=== PATIENT | male | born 1960 | race Caucasian/White ===

== ENCOUNTER 2023-11-01 17:36 | Inpatient (IN) | payer OTHER ==
[2023-11-01 21:14] VITALS: BMI 25.4
[2023-11-01] MEDS ORDERED: guaiFENesin 200 MG/10 ML 10 ML UNIT-DOSE CUPS PO PRN (22:04)
[2023-11-01] MEDS ORDERED: MAG HYDROX/AL HYDROX/SIMETH 30 ML UNIT-DOSE CUP PO PRN (22:24)
[2023-11-01] MEDS ORDERED: LOPERAMIDE HCL 2 MG CAPSULE PO PRN (22:24)
[2023-11-01] MEDS ORDERED: DICYCLOMINE HCL 10 MG CAPSULE PO PRN (22:24)
[2023-11-01] MEDS ORDERED: NICOTINE POLACRILEX 2 MG GUM BUC PRN (22:24)
[2023-11-01] MEDS ORDERED: BENZONATATE 200 MG CAPSULE PO PRN (22:24)
[2023-11-01] MEDS ORDERED: MAGNESIUM HYDROX 2400MG/30ML ORAL SUSPENSION 30 ML CUP PO PRN (22:24)
[2023-11-01] MEDS ORDERED: BISMUTH SUBSALICYLATE 524 MG/30 ML PO PRN (22:24)
[2023-11-01] MEDS ORDERED: POLYETHYLENE GLYCOL (HEALTHYLAX) 3350 17 GM PACKET PO PRN (22:24)
[2023-11-01] MEDS ORDERED: ACETAMINOPHEN 325 MG TABLET (FP) PO PRN (22:24)
[2023-11-01] MEDS ORDERED: IBUPROFEN 400 MG TABLET (FP) PO PRN (22:24)
[2023-11-01] MEDS ORDERED: MELATONIN 5 MG TABLETS PO PRN (22:24)
[2023-11-01] MEDS ORDERED: BENZOCAINE/MENTHOL (CHLORASEPTIC ) LOZENGE MM PRN (22:24)
[2023-11-01] MEDS ORDERED: P-EPHED 60MG/TRIPROLIDI 2.5MG TABLET PO PRN (22:24)
[2023-11-01] MEDS ORDERED: ONDANSETRON *ODT* 4 MG TABLET SL PRN (22:24)
[2023-11-01] MEDS ORDERED: chlordiazePOXIDE HCL 25 MG CAPSULE PO PRN (22:28)
[2023-11-01] MEDS ORDERED: METOPROLOL TARTRATE 25 MG TABLET (FP) PO ONE (23:15)
[2023-11-01] MEDS ORDERED: chlordiazePOXIDE HCL 25 MG CAPSULE ONE (23:29)
[2023-11-01] MEDS ORDERED: METOPROLOL TARTRATE 25 MG TABLET (FP) ONE (23:29)
[2023-11-02] MEDS: OFLOXACIN 0.3% OPHTHALMIC SOLUTION 5 ML BOTTLE OU SCH ×6 (00:52→21:57)
[2023-11-02] MEDS: chlordiazePOXIDE HCL 25 MG CAPSULE PO SCH ×4 (05:24→22:02)
[2023-11-02] MEDS: PRENATAL VITAMINS W/ FOLIC ACID TABLET (FP) PO SCH (10:41)
[2023-11-02 12:36] LABS: HEMATOCRIT 35.3 % (35.4-49); HEMOGLOBIN 11.8 GM/dL (11.7-16.9); MCH 32.4 pg (25.7-33.7); MCHC 33.3 g/dl (32.0-35.9); MEAN CELL VOLUME 97.3 fl (80-96); MEAN PLT VOLUME 10.2 fl (7.5-11.1); PLATELET COUNT 84 10^3/uL (134-434); RBC 3.63 M/mm3 (4.00-5.60); RDW 13.4 % (11.9-15.9)
[2023-11-02 12:47] LABS: CHLORIDE 94 mmol/L (98-107); SODIUM 131 mmol/L (136-145)
[2023-11-02 12:51] LABS: ALBUMIN 2.5 g/dl (3.4-5.0); CO2 27 mmol/L (21-32); GLUCOSE,RANDOM 80 mg/dL (74-106)
[2023-11-02 12:55] LABS: CREATININE 0.7 mg/dL (0.55-1.3); SGOT/AST 98 U/L (15-37); SGPT/ALT 56 U/L (13-61)
[2023-11-02 12:56] LABS: BILIRUBIN,TOTAL 1.7 mg/dL (0.2-1)
[2023-11-02 12:57] LABS: ALK PHOS 96 U/L (45-117)
[2023-11-02 13:20] LABS: ANION GAP 10 mmol/L (4-13); POTASSIUM 2.9 mmol/L (3.5-5.1)
[2023-11-02] MEDS: POTASSIUM CHLORIDE TABS 20 MEQ TABLET.ER (FP) PO SCH ×2 (13:53→21:57)
[2023-11-02] MEDS: THIAMINE HCL 100 MG TABLET (FP) PO SCH ×2 (19:00→21:56)
[2023-11-02] MEDS ORDERED: THIAMINE HCL 100 MG TABLET (FP) PO SCH (22:00)
[2023-11-03] MEDS ORDERED: chlordiazePOXIDE HCL 10 MG CAPSULE PO PRN
[2023-11-03] MEDS: IBUPROFEN 600 MG TABLET (FP) PO PRN (03:39)
[2023-11-03] MEDS: chlordiazePOXIDE HCL 25 MG CAPSULE PO SCH ×4 (05:47→23:17)
[2023-11-03] MEDS: OFLOXACIN 0.3% OPHTHALMIC SOLUTION 5 ML BOTTLE OU SCH ×5 (05:48→22:55)
[2023-11-03] MEDS: THIAMINE HCL 100 MG TABLET (FP) PO SCH ×3 (05:49→22:53)
[2023-11-03] MEDS: POTASSIUM CHLORIDE TABS 20 MEQ TABLET.ER (FP) PO SCH ×2 (10:25→22:53)
[2023-11-03] MEDS: PRENATAL VITAMINS W/ FOLIC ACID TABLET (FP) PO SCH (10:25)
[2023-11-03 11:39] LABS: POTASSIUM 3.3 mmol/L (3.5-5.1)
[2023-11-03 11:41] LABS: MAGNESIUM 1.4 mg/dL (1.8-2.4)
[2023-11-03 11:46] LABS: PHOSPHOROUS 3.9 mg/dL (2.5-4.9)
[2023-11-03] MEDS: LACTULOSE 20 GM/30 ML UDC (FOR ORAL USE ONLY) PO SCH ×3 (13:37→22:54)
[2023-11-04] MEDS: THIAMINE HCL 100 MG TABLET (FP) PO SCH ×3 (05:38→22:18)
[2023-11-04] MEDS: OFLOXACIN 0.3% OPHTHALMIC SOLUTION 5 ML BOTTLE OU SCH ×5 (05:38→22:18)
[2023-11-04] MEDS: chlordiazePOXIDE HCL 10 MG CAPSULE PO SCH ×4 (05:39→22:18)
[2023-11-04] MEDS: PRENATAL VITAMINS W/ FOLIC ACID TABLET (FP) PO SCH (10:36)
[2023-11-04] MEDS: LACTULOSE 20 GM/30 ML UDC (FOR ORAL USE ONLY) PO SCH ×4 (10:36→22:19)
[2023-11-05] MEDS: OFLOXACIN 0.3% OPHTHALMIC SOLUTION 5 ML BOTTLE OU SCH ×5 (05:46→22:40)
[2023-11-05] MEDS: THIAMINE HCL 100 MG TABLET (FP) PO SCH ×3 (05:47→22:39)
[2023-11-05] MEDS: IBUPROFEN 600 MG TABLET (FP) PO PRN (05:47)
[2023-11-05] MEDS: chlordiazePOXIDE HCL 10 MG CAPSULE PO SCH ×2 (05:47→17:43)
[2023-11-05] MEDS: LACTULOSE 20 GM/30 ML UDC (FOR ORAL USE ONLY) PO SCH ×4 (10:30→22:39)
[2023-11-05] MEDS: PRENATAL VITAMINS W/ FOLIC ACID TABLET (FP) PO SCH (10:30)
[2023-11-06] MEDS ORDERED: chlordiazePOXIDE HCL 10 MG CAPSULE PO ONE (05:00)
[2023-11-06] MEDS: THIAMINE HCL 100 MG TABLET (FP) PO SCH ×3 (05:59→22:52)
[2023-11-06] MEDS: OFLOXACIN 0.3% OPHTHALMIC SOLUTION 5 ML BOTTLE OU SCH ×5 (06:00→22:52)
[2023-11-06] MEDS: PRENATAL VITAMINS W/ FOLIC ACID TABLET (FP) PO SCH (09:31)
[2023-11-06] MEDS: LACTULOSE 20 GM/30 ML UDC (FOR ORAL USE ONLY) PO SCH ×4 (09:31→22:52)
[2023-11-06] MEDS: IBUPROFEN 600 MG TABLET (FP) PO PRN (09:37)
[2023-11-06 11:44] LABS: POTASSIUM 3.7 mmol/L (3.5-5.1)
[2023-11-06 11:58] LABS: CALCIUM 7.9 mg/dL (8.5-10.1)
[2023-11-06 11:59] LABS: BLOOD UREA NITROGEN 7.2 mg/dL (7-18)
[2023-11-06 12:02] LABS: CREATININE 0.7 mg/dL (0.55-1.3)
[2023-11-06 21:19] VITALS: BP 143/103; PULSE 97; RESP 20; TEMP 98
== END 2023-11-06 23:59 | disposition short-term general hospital (02) | DRG 775 ==
LOC: YASAS 17:36 → Y3N 23:40
PROVIDERS: ADMIT Allergy & Immunology; ATTEND Surgery
PROC: HZ2ZZZZ Detoxification Services for Substance Abuse Treatment (ICD-10-PCS; principal; 2023-11-01)
DX: F10.230 Alcohol dependence with withdrawal, uncomplicated (principal); F17.210 Nicotine dependence, cigarettes, uncomplicated; D64.9 Anemia, unspecified; E87.6 Hypokalemia; H10.9 Unspecified conjunctivitis; R79.89 Other specified abnormal findings of blood chemistry; R05.8 Other specified cough; R11.10 Vomiting, unspecified; R06.82 Tachypnea, not elsewhere classified; Z59.02 Unsheltered homelessness
CPT/HCPCS: 36415; 71046-TC-FY; 80048; 80053; 80307; 82140; 82962; 83735; 84100; 84132; 85027; 86780; 87635; 93005; 93010

== ENCOUNTER 2023-11-06 22:03 | Inpatient (IN) | payer OTHER ==
[2023-11-07 01:06] LABS: BASO % 0.5 % (0-2.0); EOS % 3.3 % (0-4.5); HEMATOCRIT 41.6 % (35.4-49); LYMPH % 6.9 % (8-40); MCH 33.2 pg (25.7-33.7); MCHC 33.7 g/dl (32.0-35.9); MEAN CELL VOLUME 98.8 fl (80-96); MONO % 17.9 % (3.8-10.2); NEUT % 71.4 % (42.8-82.8); RBC 4.21 M/mm3 (4.00-5.60); RDW 13.3 % (11.9-15.9); WHITE BLOOD COUNT 9.6 K/mm3 (4.0-10.0)
[2023-11-07 01:30] LABS: POTASSIUM 4.1 mmol/L (3.5-5.1)
[2023-11-07 01:34] LABS: CALCIUM 8.7 mg/dL (8.5-10.1)
[2023-11-07 01:35] LABS: ALBUMIN 2.3 g/dl (3.4-5.0); BLOOD UREA NITROGEN 16.9 mg/dL (7-18); MAGNESIUM 1.8 mg/dL (1.8-2.4)
[2023-11-07 01:38] LABS: CREATININE 0.9 mg/dL (0.55-1.3)
[2023-11-07 01:39] LABS: BILIRUBIN,TOTAL 0.6 mg/dL (0.2-1); TOT PROT 6.4 g/dl (6.4-8.2)
[2023-11-07] MEDS ORDERED: PIPERACILLIN/TAZOB 4.5 GM 4.5 GM in DEXTROSE 5%-WATER 100 ML IVPB ONE (02:07)
[2023-11-07] MEDS ORDERED: VANCOMYCIN 1,000 MG in DEXTROSE 5%-WATER - 250 ML IVPB ONE (02:07)
[2023-11-07] MEDS ORDERED: VANCOMYCIN 1 GRAM (PRE-DOCKED) 1,000 MG/250 ML BAG IVPB ONE (02:30)
[2023-11-07] MEDS ORDERED: PIPERACILLIN/TAZOB 4.5 GM 4.5 GM/100 ML BAG IVPB ONE (02:30)
[2023-11-07] MEDS ORDERED: chlordiazePOXIDE HCL 25 MG CAPSULE PO PRN (03:28)
[2023-11-07 05:02] LABS: MEAN PLT VOLUME 9.6 fl (7.5-11.1); PLATELET COUNT 223 10^3/uL (134-434)
[2023-11-07] MEDS ORDERED: chlordiazePOXIDE HCL 10 MG CAPSULE PO PRN (08:13)
[2023-11-07] MEDS ORDERED: AZITHROMYCIN IVPB 500 MG in DEXTROSE 5%-WATER - 250 ML IVPB SCH (10:00)
[2023-11-07] MEDS: ENOXAPARIN NA (PORCINE) 40 MG/0.4 ML DISP.SYRIN SQ SCH (10:28)
[2023-11-07] MEDS: CEFTRIAXONE 1 GM in DEXTROSE 5%-WATER - 50 ML IVPB SCH (10:28)
[2023-11-07] MEDS: LACTULOSE 20 GM/30 ML UDC (FOR ORAL USE ONLY) PO SCH ×4 (10:28→21:59)
[2023-11-07] MEDS ORDERED: THIAMINE HCL 200 MG/2 ML VIAL IVPB ONE (11:51)
[2023-11-07] MEDS: SODIUM CHLORIDE 1,000 ML IV SCH ×2 (12:19→22:45)
[2023-11-07] MEDS: AZITHROMYCIN IVPB 500 MG/250 ML BAG IVPB SCH (12:20)
[2023-11-08] MEDS ORDERED: THIAMINE HCL 100 MG TABLET (FP) PO SCH (10:00)
[2023-11-08] MEDS: LACTULOSE 20 GM/30 ML UDC (FOR ORAL USE ONLY) PO SCH ×4 (10:31→21:38)
[2023-11-08] MEDS: ENOXAPARIN NA (PORCINE) 40 MG/0.4 ML DISP.SYRIN SQ SCH (10:32)
[2023-11-08] MEDS: AZITHROMYCIN IVPB 500 MG/250 ML BAG IVPB SCH (10:32)
[2023-11-08] MEDS: CEFTRIAXONE 1 GM in DEXTROSE 5%-WATER - 50 ML IVPB SCH (10:32)
[2023-11-08] MEDS: FOLIC ACID 1 MG TABLET (FP) PO SCH (10:34)
[2023-11-08 10:36] LABS: HEMATOCRIT 35.3 % (35.4-49); HEMOGLOBIN 11.8 GM/dL (11.7-16.9); MCH 32.7 pg (25.7-33.7); MCHC 33.5 g/dl (32.0-35.9); MEAN CELL VOLUME 97.6 fl (80-96); MEAN PLT VOLUME 8.9 fl (7.5-11.1); PLATELET COUNT 325 10^3/uL (134-434); RBC 3.62 M/mm3 (4.00-5.60); RDW 13.2 % (11.9-15.9); WHITE BLOOD COUNT 6.9 K/mm3 (4.0-10.0)
[2023-11-08] MEDS: SODIUM CHLORIDE 1,000 ML IV SCH (10:53)
[2023-11-08 11:21] LABS: POTASSIUM 4.2 mmol/L (3.5-5.1)
[2023-11-08 11:22] LABS: CALCIUM 8.2 mg/dL (8.5-10.1)
[2023-11-08 11:23] LABS: BLOOD UREA NITROGEN 10.2 mg/dL (7-18)
[2023-11-08 11:26] LABS: CREATININE 0.7 mg/dL (0.55-1.3)
[2023-11-08] MEDS ORDERED: chlordiazePOXIDE HCL 10 MG CAPSULE PO PRN (19:02)
[2023-11-08] MEDS: THIAMINE HCL 200 MG/2 ML VIAL IVPB SCH (21:38)
[2023-11-09] MEDS: THIAMINE HCL 200 MG/2 ML VIAL IVPB SCH ×3 (06:36→21:56)
[2023-11-09] MEDS: FOLIC ACID 1 MG TABLET (FP) PO SCH (09:55)
[2023-11-09] MEDS: ENOXAPARIN NA (PORCINE) 40 MG/0.4 ML DISP.SYRIN SQ SCH (09:55)
[2023-11-09] MEDS: LACTULOSE 20 GM/30 ML UDC (FOR ORAL USE ONLY) PO SCH ×4 (09:55→21:56)
[2023-11-09] MEDS: CEFTRIAXONE 1 GM in DEXTROSE 5%-WATER - 50 ML IVPB SCH (09:55)
[2023-11-09] MEDS: AZITHROMYCIN IVPB 500 MG/250 ML BAG IVPB SCH (09:55)
[2023-11-09 10:50] LABS: HEMATOCRIT 37.8 % (35.4-49); HEMOGLOBIN 12.5 GM/dL (11.7-16.9); MCH 32.5 pg (25.7-33.7); MCHC 33.1 g/dl (32.0-35.9); MEAN CELL VOLUME 98.2 fl (80-96); MEAN PLT VOLUME 8.9 fl (7.5-11.1); PLATELET COUNT 428 10^3/uL (134-434); RBC 3.85 M/mm3 (4.00-5.60); RDW 13.3 % (11.9-15.9); WHITE BLOOD COUNT 7.4 K/mm3 (4.0-10.0)
[2023-11-09 10:56] LABS: POTASSIUM 4.1 mmol/L (3.5-5.1)
[2023-11-09 11:07] LABS: BLOOD UREA NITROGEN 10.8 mg/dL (7-18)
[2023-11-09 11:09] LABS: ALBUMIN 2.6 g/dl (3.4-5.0); CALCIUM 8.6 mg/dL (8.5-10.1)
[2023-11-09 11:12] LABS: CREATININE 0.8 mg/dL (0.55-1.3); PHOSPHOROUS 3.4 mg/dL (2.5-4.9)
[2023-11-09 11:13] LABS: BILIRUBIN,TOTAL 0.5 mg/dL (0.2-1); TOT PROT 6.8 g/dl (6.4-8.2)
[2023-11-09 13:53] LABS: ANISOCYTOSIS 0; MACROCYTOSIS 0
[2023-11-10] MEDS: THIAMINE HCL 200 MG/2 ML VIAL IVPB SCH ×2 (06:27→13:20)
[2023-11-10] MEDS: FOLIC ACID 1 MG TABLET (FP) PO SCH (09:07)
[2023-11-10] MEDS: ENOXAPARIN NA (PORCINE) 40 MG/0.4 ML DISP.SYRIN SQ SCH (09:07)
[2023-11-10] MEDS: CEFTRIAXONE 1 GM in DEXTROSE 5%-WATER - 50 ML IVPB SCH (09:07)
[2023-11-10] MEDS: LACTULOSE 20 GM/30 ML UDC (FOR ORAL USE ONLY) PO SCH ×2 (09:07→21:20)
[2023-11-10 10:20] LABS: HEMATOCRIT 38.5 % (35.4-49); HEMOGLOBIN 12.8 GM/dL (11.7-16.9); MCH 32.4 pg (25.7-33.7); MCHC 33.2 g/dl (32.0-35.9); MEAN CELL VOLUME 97.5 fl (80-96); MEAN PLT VOLUME 8.7 fl (7.5-11.1); PLATELET COUNT 463 10^3/uL (134-434); RBC 3.95 M/mm3 (4.00-5.60); RDW 13.4 % (11.9-15.9); WHITE BLOOD COUNT 7.4 K/mm3 (4.0-10.0)
[2023-11-10 10:29] LABS: POTASSIUM 4.2 mmol/L (3.5-5.1)
[2023-11-10] MEDS: AZITHROMYCIN IVPB 500 MG/250 ML BAG IVPB SCH (10:33)
[2023-11-10 10:35] LABS: CALCIUM 8.7 mg/dL (8.5-10.1)
[2023-11-10 10:36] LABS: ALBUMIN 2.4 g/dl (3.4-5.0); BLOOD UREA NITROGEN 8.2 mg/dL (7-18)
[2023-11-10 10:38] LABS: BILIRUBIN,TOTAL 0.4 mg/dL (0.2-1); TOT PROT 6.4 g/dl (6.4-8.2)
[2023-11-10 10:39] LABS: CREATININE 0.7 mg/dL (0.55-1.3)
[2023-11-10] MEDS ORDERED: ACETAMINOPHEN 325 MG TABLET (FP) PO PRN (12:11)
[2023-11-10 14:22] VITALS: BMI 25.7
[2023-11-11 10:01] LABS: HEMATOCRIT 35.7 % (35.4-49); HEMOGLOBIN 11.4 GM/dL (11.7-16.9); MCH 31.7 pg (25.7-33.7); MEAN PLT VOLUME 8.6 fl (7.5-11.1); PLATELET COUNT 470 10^3/uL (134-434); RBC 3.61 M/mm3 (4.00-5.60); RDW 13.2 % (11.9-15.9); WHITE BLOOD COUNT 7.9 K/mm3 (4.0-10.0)
[2023-11-11 10:37] LABS: CALCIUM 8.5 mg/dL (8.5-10.1)
[2023-11-11 10:38] LABS: ALBUMIN 2.3 g/dl (3.4-5.0); BLOOD UREA NITROGEN 10.6 mg/dL (7-18)
[2023-11-11] MEDS: CEFTRIAXONE 1 GM in DEXTROSE 5%-WATER - 50 ML IVPB SCH (10:39)
[2023-11-11] MEDS: AZITHROMYCIN IVPB 500 MG/250 ML BAG IVPB SCH (10:39)
[2023-11-11] MEDS: THIAMINE HCL 200 MG/2 ML VIAL IVPB SCH (10:40)
[2023-11-11] MEDS: FOLIC ACID 1 MG TABLET (FP) PO SCH (10:40)
[2023-11-11] MEDS: ENOXAPARIN NA (PORCINE) 40 MG/0.4 ML DISP.SYRIN SQ SCH (10:40)
[2023-11-11 10:41] LABS: CREATININE 0.9 mg/dL (0.55-1.3); PHOSPHOROUS 3.1 mg/dL (2.5-4.9)
[2023-11-11 10:42] LABS: BILIRUBIN,TOTAL 0.5 mg/dL (0.2-1)
[2023-11-11] MEDS: LACTULOSE 20 GM/30 ML UDC (FOR ORAL USE ONLY) PO SCH ×2 (15:42→21:31)
[2023-11-12] MEDS: LACTULOSE 20 GM/30 ML UDC (FOR ORAL USE ONLY) PO SCH ×2 (06:13→13:14)
[2023-11-12 08:23] VITALS: RESP 18
[2023-11-12 10:23] LABS: INR 1.06 (0.83-1.09); PROTHROMBIN TIME (PATIENT) 12.3 SEC (9.7-13.0)
[2023-11-12 10:26] LABS: ACTIVATED PTT 31.3 SECONDS (25.2-36.5)
[2023-11-12 10:29] LABS: HEMATOCRIT 37.7 % (35.4-49); HEMOGLOBIN 12.8 GM/dL (11.7-16.9); MCH 32.9 pg (25.7-33.7); MCHC 33.8 g/dl (32.0-35.9); MEAN CELL VOLUME 97.3 fl (80-96); MEAN PLT VOLUME 8.5 fl (7.5-11.1); PLATELET COUNT 542 10^3/uL (134-434); RBC 3.88 M/mm3 (4.00-5.60); RDW 13.3 % (11.9-15.9); WHITE BLOOD COUNT 9.9 K/mm3 (4.0-10.0)
[2023-11-12 10:50] LABS: POTASSIUM 4.3 mmol/L (3.5-5.1)
[2023-11-12] MEDS: THIAMINE HCL 200 MG/2 ML VIAL IVPB SCH (10:54)
[2023-11-12] MEDS: FOLIC ACID 1 MG TABLET (FP) PO SCH (10:54)
[2023-11-12] MEDS: ENOXAPARIN NA (PORCINE) 40 MG/0.4 ML DISP.SYRIN SQ SCH (10:54)
[2023-11-12 10:56] LABS: ALBUMIN 2.6 g/dl (3.4-5.0)
[2023-11-12 10:58] LABS: CREATININE 0.7 mg/dL (0.55-1.3)
[2023-11-12 10:59] LABS: TOT PROT 6.6 g/dl (6.4-8.2)
[2023-11-12 11:03] LABS: BLOOD UREA NITROGEN 7.2 mg/dL (7-18)
[2023-11-12 11:04] LABS: CALCIUM 8.7 mg/dL (8.5-10.1)
[2023-11-12 11:06] LABS: PHOSPHOROUS 3.3 mg/dL (2.5-4.9)
[2023-11-12 11:07] LABS: BILIRUBIN,TOTAL 0.4 mg/dL (0.2-1)
[2023-11-12 14:56] VITALS: BP 123/66; PULSE 74; TEMP 98.9
[2023-11-12] MEDS ORDERED: CEFTRIAXONE 1 GM in DEXTROSE 5%-WATER - 50 ML IVPB SCH (16:45)
[2023-11-12] MEDS ORDERED: cefTRIAXone SODIUM 1 GM VIAL ONE (17:30)
== END 2023-11-12 19:45 | disposition home or self-care (01) | DRG 139 ==
LOC: JER 22:03 → JERBED 11-07 03:33 → J6S 11-07 10:02
PROVIDERS: ADMIT Internal Medicine; ATTEND Internal Medicine
DX: J18.9 Pneumonia, unspecified organism (principal); F10.231 Alcohol dependence with withdrawal delirium; E72.20 Disorder of urea cycle metabolism, unspecified; K76.0 Fatty (change of) liver, not elsewhere classified; E51.2 Wernicke's encephalopathy; F17.210 Nicotine dependence, cigarettes, uncomplicated; J98.11 Atelectasis
CPT/HCPCS: 0241U-QW; 36415; 70450-TC; 70551-TC; 71045-TC-FY; 76705-TC; 80048; 80053; 80061; 80307; 82140; 83735; 84100; 84443; 85025; 85027; 85610; 85730; 86038; 86705; 86708; 87081; 87517; 87522; 87899; 93005; 93010; 99285-25